=== PATIENT | female | born 1980 | race Two or more races ===

== ENCOUNTER 2025-01-28 10:54 | Emergency (ER) | payer BC, OTHER ==
[~2025-01-28] VITALS: Ht 165.1 cm; Wt 90.9 kg
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
--- NOTE | 2025-01-28 11:50 | DVH ---
CLINICAL INDICATION: clavicle TECHNIQUE: 3 radiographic views of the left shoulder were obtained. Comparison: None FINDINGS/IMPRESSION: Bony structures are intact and normal alignment. No fracture or dislocation. Left clavicle appears intact and normal alignment.
--- NOTE | 2025-01-28 11:51 | DVH ---
CHEST RADIOGRAPH Indication: clavicle Technique: Single frontal view of the chest was obtained Comparison: None FINDINGS: Lines and Tubes: None Lungs: No focal consolidation. Pleura: No effusion. No pneumothorax. Cardiomediastinal contours: Unremarkable Bones: No acute osseous abnormality. IMPRESSION: 1. No acute cardiopulmonary disease.
[2025-01-28] MEDS ORDERED: IBU600T PO (13:38)
[2025-01-28 13:40] VITALS: BP 147/79; PULSE 81; RESP 17; TEMP 98.3; O2SAT 98
== END 2025-01-28 13:46 | disposition home or self-care (01) ==
LOC: ER 10:54
DX: R07.89 Other chest pain (principal)
CPT/HCPCS: 71045; 73030